=== PATIENT | male | born 1970 | race Caucasian/White ===

== ENCOUNTER 2016-07-28 17:06 | Emergency (ER) | payer OTHER ==
[~2016-07-28] VITALS: Ht 177.8 cm; Wt 109.1 kg
[2016-07-28 17:09] VITALS: BP 128/86; PULSE 75; RESP 15; O2SAT 99
[2016-07-28] MEDS ORDERED: LISI1TAB7 PO (17:14)
[2016-07-28] MEDS ORDERED: METF1000 PO (17:14)
--- NOTE | 2016-07-28 18:06 | ED.REPORT ---
HPI-Extremity Problem Upper Date of Service Jul 28, 2016 ED Provider: Milton Edwards DO A right-handed 45 year old male with a history of hypertension and diabetes presents to the ED complaining of left shoulder pain. This pain is present any time the pt raises his arm and worsens throughout the day as the pt moves, but is relieved somewhat by rest. The pt helped a friend move five days ago and the pain has been worsening since. Nursing Notes Stated Complaint: LEFT SHOULDER PAIN Chief Complaint: Extremity Trauma Nursing Notes Reviewed: Yes Allergies: Coded Allergies: No Known Allergies (Unverified , 07/28/16) Scheduled Metformin (Glucophage) 1,000 Mg Tablet 1,000 MG PO BID Miscellaneous Medications Lisinopril / HCTZ 10-12.5 mg (Lisinopril / HCTZ 10-12.5 mg) 1 Each Tablet 1 EACH PO General Time Seen by MD: 18:05 Chief Complaint Shoulder injury left Hx Obtained From: Patient Arrived By: Walk-in Onset Occurred: 4 days ago Recent Healthcare: No recent doctor visit, No recent hospitalization Similar Sx Previous: No Past Medical History Past Medical History hypertension diabetes Past Surgical History none reported Smoking History Unknown if Ever Smoker Social History Alcohol Use: "Social" Drug Use: THC Ambulatory Status Independent Review of Systems Constitutional: Denies: Fever Musculoskeletal: Reports: Joint pain (left shoulder), Denies: Back pain Skin: Denies Rash Complete sys rev & neg: except as marked. Respiratory: Denies: Non-productive cough, Shortness of breath Cardiovascular: Denies: Chest pain GI: Denies: Abdominal pain Physical Exam Initial Vital Signs Vital Signs (First) Date Time Temp Pulse Resp B/P Pulse Ox O2 Delivery O2 Flow Rate FiO2 07/28/16 17:09 36.8 75 15 128/86 99 Room Air Initial VS: Reviewed General/Constitutional: Awake, Alert Neck: Atraumatic, Supple, Full range of motion Respiratory / Chest: Atraumatic, Breath sounds NL, Breath sounds = bilat, No respiratory distress Cardiovascular: Heart rate NL, Regular rhythm, Heart sounds NL Upper Extremity / MS: Neurologic intact, Vascular intact limited abduction of left arm due to pain tender anterior humerus at joint/approximate site of rotator cuff and tendon insertion Skin: Atraumatic, Color NL, No rash, Warm, Dry Neurologic: Oriented X3, Speech NL, No motor deficits, No sensory deficits Head / Eyes: Atraumatic, Normocephalic, PERRL, EOMI ENT: Atraumatic, Airway patent, Mucous membranes moist Abdomen: Atraumatic, Soft, Non-tender Back: Atraumatic, Full range of motion Lower Extremity / Pelvis / MS: Atraumatic, Full range of motion Psychiatric: Affect NL, Mood NL Interpretation & Diagnostics Pulse Oximetry Interpretation Pulse Oximetry Interpretation: 99% on room air Pulse Oximetry: Pulse Ox normal X-Ray Interpretation Xray Interpretation: IMPRESSION: Calcific tendinitis lateral supraspinatus area, moderate a.c. joint osteoarthritis. No acute trauma found. Dictated by: Mikie Barrera M.D. on 07/28/2016 at 19:34 Approved by: Mikie Barrera M.D. on 07/28/2016 at 19:35 X-Ray Ordered: Shoulder left Interpretation / Wet Read by: Interpret - Radiologist Re-Eval/Medical Decision Med Decision/Clinical Course X-rays are consistent with calcific tendinitis. Exam is consistent with a rotator cuff tendinopathy. Joint is stable. This certainly is not referred pain from a cardiac source. Toradol helped the pain. Brief course of Depew provided for moderate to severe pain. Naprosyn recommended for mild-to- moderate pain. Routine opiate warnings given. Orthopedic referral given Re-Evaluation/Progress : Time of Eval: 19:24 Re-Evaluation/Progress Note: Pt rechecked, who is comfortable. The diagnosis and plan for discharge is discussed. The pt understands and agrees with the plan. All questions are addressed at this time. Counseled Regarding: Diagnosis, Need for follow-up, When/why to return to ED Discharge & Departure Impression: Primary Impression: Left shoulder strain Encounter type: initial encounter Qualified Code: S46.912A - Strain of unspecified muscle, fascia and tendon at shoulder and upper arm level, left arm , initial encounter Additional Impressions: Rotator cuff strain Encounter type: initial encounter Laterality: left Qualified Code: S46.012A - Strain of muscle(s) and tendon(s) of the rotator cuff of left shoulder, initial encounter Calcific tendonitis of shoulder region Laterality: left Qualified Code: M75.32 - Calcific tendinitis of left shoulder Disposition: Home Discharge Condition All VS Reviewed: Yes Condition: Stable Patient Instructions: Rotator Cuff Injury (ED), Shoulder Pain (ED) Additional Instructions: Your x-ray showed calcific tendinopathy of the left shoulder. Take Naprosyn twice daily as needed for moderate pain. Take 1 to 2 Depew every six hours as needed for severe pain. Do not drink, drive, or consume acetaminophen while taking the Depew. Call your primary care physician in the morning to arrange a follow up appointment this week. Return to the emergency department if you develop any new or worsening symptoms. Referrals: [facility] Michael Del Angel MD Attestation Portions of this note were transcribed by Talib Albert. I, Dr. Edwards personally performed the history, physical exam and medical decision-making; I reviewed and confirmed the accuracy of the information in the transcribed note. Signed by: Fern Ellis, 07/28/16 and 1954. copies to: [facility]; Michael Del Angel MD, Todd P DO Jul 28, 2016 18:06 TALIB ALBERT Jul 28, 2016 18:24
[2016-07-28 19:35] VITALS: BP 134/87; PULSE 77; RESP 16; O2SAT 99
--- NOTE | 2016-07-28 19:37 | DRSVH ---
PROCEDURE: X-RAY LEFT SHOULDER, MINIMUM TWO VIEWS ([id number]) INDICATIONS: left anterior shoulder pain TECHNIQUE: 4 views of the shoulder were acquired. COMPARISON: None. FINDINGS: Bones: No fractures or dislocations. No suspicious bony lesions. Visualized ribs appear intact. Th ere is a moderate degree of a.c. joint osteoarthritis, and also evidence of calcific tendinitis at th e lateral supraspinatus insertion beneath the lateral border of the acromion. Soft tissues: No suspicious soft tissue calcifications. IMPRESSION: Calcific tendinitis lateral supraspinatus area, moderate a.c. joint osteoarthritis. No acute trauma found. Dictated by: Mikie Barrera M.D. on 07/28/2016 at 19:34 Approved by: Mikie Barrera M.D. on 07/28/2016 at 19:35
== END 2016-07-28 19:36 | disposition home or self-care (01) ==
LOC: SED 17:06
DX: S46.912A Strain of unspecified muscle, fascia and tendon at shoulder and upper arm level, left arm, initial encounter (principal); S46.012A Strain of muscle(s) and tendon(s) of the rotator cuff of left shoulder, initial encounter; M75.32 Calcific tendinitis of left shoulder; X50.0XXA Overexertion from strenuous movement or load, initial encounter; Y93.E6 Activity, residential relocation; Y99.8 Other external cause status; Y92.019 Unspecified place in single-family (private) house as the place of occurrence of the external cause; I10 Essential (primary) hypertension; E11.9 Type 2 diabetes mellitus without complications; F12.10 Cannabis abuse, uncomplicated
CPT/HCPCS: 73030; 96372; 99284; J1885